=== PATIENT | female | born 1995 | race Caucasian/White ===

== ENCOUNTER 2021-02-27 14:06 | Outpatient (CLI) | payer OTHER ==
[~2021-02-27 14:06] MED LIST: COLACE 100MG C100 MG PO; IBUPROFEN600 MG PO; LORTAB 5-325 M1 EACH PO; PRENATAL VITAM1 EAC3 PO
== END 2021-02-27 15:32 | disposition home or self-care (01) ==
LOC: GENOP 14:06
DX: O47.03 False labor before 37 completed weeks of gestation, third trimester (principal); O99.891 Other specified diseases and conditions complicating pregnancy; N89.8 Other specified noninflammatory disorders of vagina; M54.9 Dorsalgia, unspecified; Z3A.35 35 weeks gestation of pregnancy
CPT/HCPCS: 81001; 83518; G0463

== ENCOUNTER 2021-03-24 00:06 | Outpatient (CLI) | payer OTHER | END 2021-03-24 03:30 | disposition home or self-care (01) | LOC: GENOP 00:06 | DX: Z53.8 Procedure and treatment not carried out for other reasons (principal) | CPT/HCPCS: 82962; G0463; J7030 ==

== ENCOUNTER 2021-03-25 18:34 | Inpatient (IN) | payer OTHER ==
[~2021-03-25] VITALS: Ht 160 cm; Wt 94.3 kg
[2021-03-25 19:32] LABS: HEMOGLOBIN 10.5 gm/dl (12.3-15.3); RED BLOOD COUNT 3.81 M/UL (4.00-5.10)
[2021-03-26] MEDS ORDERED: FEOSOL325 MG PO (04:55)
[2021-03-26] MEDS ORDERED: PRENATAL VITAM1 EAC3 PO (04:55)
[2021-03-26] MEDS ORDERED: IBUPROFEN800 MG PO ×2 (15:53→15:56)
[2021-03-26] MEDS ORDERED: COLACE100 MG PO ×2 (15:53→15:56)
[2021-03-26] MEDS ORDERED: HEMATINIC-FOLI1 EACH PO ×2 (15:53→15:56)
[2021-03-27 07:05] LABS: HEMOGLOBIN 8.9 gm/dl (12.3-15.3)
== END 2021-03-27 17:48 | disposition home or self-care (01) | DRG 807 ==
LOC: OB 18:34
PROVIDERS: Obstetrics & Gynecology; ADMIT Obstetrics & Gynecology
PROC: 10E0XZZ Delivery of Products of Conception, External Approach (ICD-10-PCS; principal; 2021-03-25)
PROC: 10907ZC Drainage of Amniotic Fluid, Therapeutic from Products of Conception, Via Natural or Artificial Opening (ICD-10-PCS; 2021-03-25)
PROC: 4A1HXCZ Monitoring of Products of Conception, Cardiac Rate, External Approach (ICD-10-PCS; 2021-03-25)
DX: O24.429 Gestational diabetes mellitus in childbirth, unspecified control (principal); Z37.0 Single live birth; Z3A.39 39 weeks gestation of pregnancy; Z87.11 Personal history of peptic ulcer disease; Z20.822 Contact with and (suspected) exposure to COVID-19; Z80.3 Family history of malignant neoplasm of breast; Z82.49 Family history of ischemic heart disease and other diseases of the circulatory system; O99.02 Anemia complicating childbirth; D64.9 Anemia, unspecified
CPT/HCPCS: 51702; 81001; 82962; 85014; 85018; 85025; 90715; G0463; J2405; J2590; J2795; J7030; U0002